=== PATIENT | female | born 1975 | race Caucasian/White ===

== ENCOUNTER 2020-11-07 18:24 | Inpatient (IN) | payer MEDICAID ==
[~2020-11-07] VITALS: Ht 172.7 cm; Wt 81.2 kg
[2020-11-08 10:36] VITALS: BP 121/59
[2020-11-08] MEDS ORDERED: loperamide 2mg capsule PO PRN (10:55)
[2020-11-08] MEDS ORDERED: LORazepam 1 MG tablet PO PRN (10:55)
[2020-11-08] MEDS ORDERED: mag hydrox/Alum hydrox/simeth 30ml oral suspension PO PRN (10:55)
[2020-11-08] MEDS ORDERED: acetaminophen 325mg tablet PO PRN ×2 (10:55)
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
[2020-11-08] MEDS ORDERED: OLAN10TA3 PO (12:49)
[2020-11-08] MEDS ORDERED: NAPR-56 PO (12:49)
[2020-11-08] MEDS ORDERED: GABA-530 PO (12:49)
[2020-11-08] MEDS: magnesium hydroxide 30ml (MOM) UD suspension PO PRN (17:39)
[2020-11-08 19:11] VITALS: BP 125/62
[2020-11-08] MEDS ORDERED: olanzapine 10mg tablet PO ONE (19:47)
[2020-11-08] MEDS: gabapentin 100mg capsule PO SCH (20:48)
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
[2020-11-09 07:28] VITALS: BP 112/67
[2020-11-09] MEDS: nicotine 21mg patch - 24 hr TD SCH (08:00)
[2020-11-09 08:09] LABS: BASOPHILS # (AUTO) 0.1 X10'3 (0-0.2); BASOPHILS % (AUTO) 1.1 % (0-1); EOSINOPHILS # (AUTO) 0.4 X10'3 (0-0.9); EOSINOPHILS % (AUTO) 4.9 % (0-6); HEMATOCRIT 41.9 % (35.0-45.0); HEMOGLOBIN 14.2 g/dl (12.0-16.0); LYMPHOCYTES # (AUTO) 2.5 X10'3 (1.1-4.8); LYMPHOCYTES % (AUTO) 31.3 % (21-51); MEAN CORPUSCULAR HEMOGLOBIN 31.6 PG (27.0-31.0); MEAN CORPUSCULAR HGB CONC 33.9 g/dL (33.0-36.5); MEAN CORPUSCULAR VOLUME 93.4 FL (78-98); MEAN PLATELET VOLUME 7.1 FL (7.4-10.4); MONOCYTES # (AUTO) 0.7 X10'3 (0-0.9); MONOCYTES % (AUTO) 9.4 % (2-12); NEUTROPHILS # (AUTO) 4.2 X10'3 (1.8-7.7); NEUTROPHILS % (AUTO) 53.3 % (42-75); PLATELET COUNT 302 X10'3 (140-440); RED BLOOD COUNT 4.49 X10'6 (4.20-5.60); RED CELL DISTRIBUTION WIDTH 13.3 % (11.5-14.5); WHITE BLOOD COUNT 7.9 X10'3 (4.5-11.0)
[2020-11-09] MEDS: olanzapine 10mg tablet PO SCH ×2 (08:10→21:53)
[2020-11-09 08:59] LABS: ALANINE AMINOTRANSFERASE 21 U/L (12-78); ALBUMIN 3.3 G/DL (3.4-5.0); ALBUMIN/GLOBULIN RATIO 0.9 (1.1-1.5); ALKALINE PHOSPHATASE 72 IU/L (46-116); ANION GAP 8 (8-16); ASPARTATE AMINO TRANSFERASE 15 U/L (10-37); BILIRUBIN,TOTAL 0.4 MG/DL (0.1-1.0); BLOOD UREA NITROGEN 12 MG/DL (7-18); BUN/CREATININE RATIO 13.8 (6.6-38.0); CALCIUM 8.4 MG/DL (8.5-10.1); CHLORIDE 106 MMOL/L (99-107); CHOL/HDL RATIO 2.8 (0.00-4.99); CHOLESTEROL 113 MG/DL (0-200); CREATININE 0.87 MG/DL (0.40-0.90); GLUCOSE 97 MG/DL (70-104); HDL CHOLESTEROL 41 MG/DL (35-60); LDL CHOLESTEROL 57 MG/DL (50-100); POTASSIUM 4.2 MMOL/L (3.5-5.1); SODIUM 141 MMOL/L (135-145); TOTAL CARBON DIOXIDE 27.1 MMOL/L (24-32); TOTAL PROTEIN 7.1 G/DL (6.4-8.2); TRIGLYCERIDES 79 MG/DL (20-135); eGFR 70 ML/MIN
[2020-11-09] MEDS: magnesium hydroxide 30ml (MOM) UD suspension PO PRN (11:29)
[2020-11-09] MEDS ORDERED: olanzapine 10mg tablet PO ONE (13:20)
[2020-11-09 14:31] LABS: HEMOGLOBIN A1C 5.6 % (4.5-6.2)
[2020-11-09] MEDS ORDERED: haloperidol 1mg tablet PO PRN (15:20)
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
[2020-11-09 18:05] LABS: BASOPHILS # (AUTO) 0.1 X10'3 (0-0.2); BASOPHILS % (AUTO) 1.2 % (0-1); EOSINOPHILS # (AUTO) 0.4 X10'3 (0-0.9); EOSINOPHILS % (AUTO) 3.9 % (0-6); HEMATOCRIT 41.3 % (35.0-45.0); HEMOGLOBIN 14.2 g/dl (12.0-16.0); LYMPHOCYTES # (AUTO) 2.1 X10'3 (1.1-4.8); MEAN CORPUSCULAR HEMOGLOBIN 32.1 PG (27.0-31.0); MEAN CORPUSCULAR HGB CONC 34.3 g/dL (33.0-36.5); MEAN CORPUSCULAR VOLUME 93.4 FL (78-98); MEAN PLATELET VOLUME 7.8 FL (7.4-10.4); MONOCYTES # (AUTO) 0.8 X10'3 (0-0.9); MONOCYTES % (AUTO) 9.3 % (2-12); NEUTROPHILS # (AUTO) 5.6 X10'3 (1.8-7.7); NEUTROPHILS % (AUTO) 62.6 % (42-75); PLATELET COUNT 302 X10'3 (140-440); RED BLOOD COUNT 4.42 X10'6 (4.20-5.60); RED CELL DISTRIBUTION WIDTH 13.5 % (11.5-14.5)
[2020-11-09 18:19] LABS: C-REACTIVE PROTEIN 1.13 MG/DL (0.0-0.5); CREATINE KINASE 58 U/L (26-192)
[2020-11-09 19:18] VITALS: BP 99/56
[2020-11-09] MEDS ORDERED: Permethrin Cream 60gm TP ONE (20:25)
[2020-11-09] MEDS ORDERED: Permethrin 1% 59ml topical rinse TP ONE (20:25)
[2020-11-09] MEDS: divalproex sod 250mg ER (24-hour) tablet PO SCH (21:52)
[2020-11-09] MEDS: clindamycin 150mg capsule PO SCH (21:52)
[2020-11-09] MEDS: gabapentin 100mg capsule PO SCH (21:53)
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
[2020-11-10] MEDS: clindamycin 150mg capsule PO SCH ×4 (02:55→20:23)
[2020-11-10 07:28] VITALS: BP 123/69
[2020-11-10] MEDS: nicotine 21mg patch - 24 hr TD SCH (08:00)
[2020-11-10] MEDS: olanzapine 10mg tablet PO SCH ×2 (08:54→20:23)
[2020-11-10] MEDS: naproxen 500mg tablet PO PRN (08:55)
[2020-11-10] MEDS ORDERED: Ivermectin 3mg tablet PO ONE (10:30)
[2020-11-10 10:45] LABS: CHOL/HDL RATIO 2.8 (0.00-4.99); CHOLESTEROL 105 MG/DL (0-200); HDL CHOLESTEROL 38 MG/DL (35-60); LDL CHOLESTEROL 56 MG/DL (50-100); TRIGLYCERIDES 104 MG/DL (20-135)
[2020-11-10 12:34] LABS: CLARITY,URINE CLOUDY (Clear); COLOR,URINE STRAW (Yellow); GLUCOSE, URINE NEGATIVE (Neg); KETONES,URINE NEGATIVE (Neg); LEUKOCYTE ESTERASE ,URINE NEGATIVE (Neg); NITRITES, URINE NEGATIVE (Neg); OCCULT BLOOD,URINE TRACE-INTACT (Neg); PROTEIN,URINE NEGATIVE (Neg); URINE HCG NEGATIVE (NEG); UROBILINOGEN,URINE 0.2 E.U/dL (0.2-1.0)
[2020-11-10 12:41] LABS: URINE AMPHETAMINE SCREEN NEGATIVE (Neg); URINE BARBITUATE SCREEN NEGATIVE (Neg); URINE BENZODIAZEPINES SCREEN NEGATIVE (Neg); URINE CANNABINOID SCREEN POSITIVE (Neg); URINE COCAINE SCREEN NEGATIVE (Neg); URINE METHADONE SCREEN NEGATIVE (Neg); URINE OPIATE SCREEN NEGATIVE (Neg); URINE PHENCYCLIDINE SCREEN NEGATIVE (Neg)
[2020-11-10 12:56] LABS: UA COLLECTION TYPE VOIDED
[2020-11-10 12:58] LABS: BACTERIA,URINE 1+ /HPF (Neg); RBC,URINE 0-2 /HPF (0-2); SQUAMOUS EPITHELIAL CELL,UR MANY /LPF (FEW); WBC,URINE 0-4 /HPF (0-4)
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
[2020-11-10] MEDS: magnesium hydroxide 30ml (MOM) UD suspension PO PRN (18:57)
[2020-11-10 19:24] VITALS: BP 112/67
[2020-11-10] MEDS: gabapentin 100mg capsule PO SCH (20:23)
[2020-11-10] MEDS: divalproex sod 250mg ER (24-hour) tablet PO SCH (20:23)
[2020-11-11] MEDS: clindamycin 150mg capsule PO SCH ×4 (01:49→20:23)
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
[2020-11-11 07:35] VITALS: BP 112/65
[2020-11-11] MEDS: nicotine 21mg patch - 24 hr TD SCH (08:00)
[2020-11-11] MEDS: olanzapine 10mg tablet PO SCH ×2 (08:48→20:24)
[2020-11-11] MEDS: magnesium hydroxide 30ml (MOM) UD suspension PO PRN (08:56)
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
[2020-11-11] MEDS: naproxen 500mg tablet PO PRN (20:23)
[2020-11-11] MEDS: divalproex sod 250mg ER (24-hour) tablet PO SCH (20:23)
[2020-11-11] MEDS: gabapentin 100mg capsule PO SCH (20:24)
[2020-11-11 20:41] VITALS: BP 146/62
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
[2020-11-12] MEDS: clindamycin 150mg capsule PO SCH ×4 (02:36→20:33)
[2020-11-12 07:32] VITALS: BP 132/92
[2020-11-12] MEDS: nicotine 21mg patch - 24 hr TD SCH (08:00)
[2020-11-12] MEDS: olanzapine 10mg tablet PO SCH ×2 (08:13→20:33)
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
[2020-11-12 19:15] VITALS: BP 121/79
[2020-11-12] MEDS: divalproex sod 250mg ER (24-hour) tablet PO SCH (20:33)
[2020-11-12] MEDS: naproxen 500mg tablet PO PRN (20:33)
[2020-11-12] MEDS: gabapentin 100mg capsule PO SCH (20:33)
[2020-11-12] MEDS: traZODone 50mg tablet PO PRN (21:15)
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
[2020-11-13] MEDS: clindamycin 150mg capsule PO SCH ×4 (02:00→20:15)
[2020-11-13 07:29] VITALS: BP 105/58
[2020-11-13] MEDS: nicotine 21mg patch - 24 hr TD SCH (08:00)
[2020-11-13] MEDS: olanzapine 10mg tablet PO SCH ×2 (08:15→20:15)
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
[2020-11-13] MEDS: gabapentin 100mg capsule PO SCH (20:15)
[2020-11-13] MEDS: traZODone 50mg tablet PO PRN (20:15)
[2020-11-13] MEDS: divalproex sod 250mg ER (24-hour) tablet PO SCH (20:15)
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
[2020-11-14] MEDS: clindamycin 150mg capsule PO SCH ×4 (02:59→20:18)
[2020-11-14 07:33] VITALS: BP 107/57
[2020-11-14] MEDS: nicotine 21mg patch - 24 hr TD SCH (08:00)
[2020-11-14] MEDS: OLANZAPINE 5 MG TABLET PO SCH (08:41)
[2020-11-14] MEDS: naproxen 500mg tablet PO PRN ×2 (08:42→20:18)
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
[2020-11-14 19:16] VITALS: BP 124/89
[2020-11-14] MEDS: divalproex sod 250mg ER (24-hour) tablet PO SCH (20:18)
[2020-11-14] MEDS: olanzapine 10mg tablet PO SCH (20:18)
[2020-11-14] MEDS: traZODone 50mg tablet PO PRN (20:18)
[2020-11-14] MEDS: gabapentin 100mg capsule PO SCH (20:18)
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
[2020-11-15] MEDS: clindamycin 150mg capsule PO SCH ×4 (02:00→20:04)
[2020-11-15] MEDS: nicotine 21mg patch - 24 hr TD SCH (08:00)
[2020-11-15 08:24] VITALS: BP 107/66
[2020-11-15] MEDS: naproxen 500mg tablet PO PRN ×2 (08:27→20:04)
[2020-11-15] MEDS: OLANZAPINE 5 MG TABLET PO SCH (08:27)
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
[2020-11-15 19:00] VITALS: BP 106/81
[2020-11-15] MEDS: olanzapine 10mg tablet PO SCH (20:03)
[2020-11-15] MEDS: divalproex sod 250mg ER (24-hour) tablet PO SCH (20:04)
[2020-11-15] MEDS: gabapentin 100mg capsule PO SCH (20:04)
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
[2020-11-16] MEDS: clindamycin 150mg capsule PO SCH ×5 (02:00→20:26)
[2020-11-16 07:00] VITALS: BP 96/50
[2020-11-16] MEDS: OLANZAPINE 5 MG TABLET PO SCH (08:05)
[2020-11-16] MEDS: nicotine 21mg patch - 24 hr TD SCH (08:06)
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
[2020-11-16 19:00] VITALS: BP 126/45
[2020-11-16 19:25] VITALS: BP 113/66
[2020-11-16] MEDS: olanzapine 10mg tablet PO SCH (20:26)
[2020-11-16] MEDS: gabapentin 100mg capsule PO SCH (20:26)
[2020-11-16] MEDS: divalproex sod 250mg ER (24-hour) tablet PO SCH (20:26)
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
[2020-11-17 07:18] VITALS: BP 107/61
[2020-11-17] MEDS: clindamycin 150mg capsule PO SCH ×4 (07:55→20:09)
[2020-11-17] MEDS: naproxen 500mg tablet PO PRN (07:56)
[2020-11-17] MEDS: OLANZAPINE 5 MG TABLET PO SCH (07:56)
--- NOTE | 2020-11-17 11:11 | NUR ---
Eating well, good appetite, 100% PO Intake. No nutrition problem. Recommend: 1. continue regular diet 2. bowel care as needed 3. weekly weights Addendum: 11/17/20 at [address] Amended: Links added.
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
[2020-11-17 19:47] VITALS: BP 118/70
[2020-11-17] MEDS: gabapentin 100mg capsule PO SCH (20:09)
[2020-11-17] MEDS: divalproex sod 250mg ER (24-hour) tablet PO SCH (20:09)
[2020-11-17] MEDS: olanzapine 10mg tablet PO SCH (20:10)
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
[2020-11-18] MEDS: clindamycin 150mg capsule PO SCH (08:05)
[2020-11-18] MEDS: OLANZAPINE 5 MG TABLET PO SCH (08:05)
[2020-11-18 08:21] VITALS: BP 110/74
--- NOTE | 2020-11-18 11:48 | NUR ---
DCP-Discharge Presenting Issues: Per attending PA, pt is ready for d/c and needs assistance w/dcp activities. Interventions: SS had t/c with [facility] clinician, per t/c post-hospital follow-ups scheduled with pt's clinician & psychiatric care provider made. SS also had t/c with [facility] [employer] and scheduled transportation home for pt. regional owner operator truck driver will pick pt up @ 1:00PM. Micky-RN & attending PA notified of dcp. SS met with pt and reviewed & finalized dcp. Pt reports looking forward to d/c and agreed to see her clinician on Wednesday for a post-hospital follow-up. Plan: Pt to d/c this afternoon. Alexia Honeycutt LCSW Addendum: 11/18/20 at 1153 by Alexia Honeycutt Amended: Links added.
[2020-11-18] MEDS ORDERED: TRAZ-251 PO (12:49)
[2020-11-18] MEDS ORDERED: GABA-530 PO (12:49)
[2020-11-18] MEDS ORDERED: DIVA250T8 PO (12:49)
[2020-11-18] MEDS ORDERED: OLAN10TA19 PO (12:49)
[2020-11-18] MEDS ORDERED: OLAN5TAB26 PO (12:49)
--- NOTE | 2020-11-18 16:20 | NUR ---
DISCHARGE NOTE The patient was discharged today at 1620. She left with all belongings and instructions. She was anxious to be discharged and looking forward to going home. She is going to her father's home in [place]. Denied suicidal thoughts. She was escorted to the lobby by IGNACIO Carter and picked up by a cab.
== END 2020-11-18 16:28 | disposition home or self-care (01) | DRG 751 ==
LOC: ADULT MH 11-08 10:23
PROVIDERS: ADMIT Psychiatry & Neurology Psychiatry; ATTEND Psychiatry & Neurology Psychiatry
DX: F29 Unspecified psychosis not due to a substance or known physiological condition (principal); B86 Scabies; F20.9 Schizophrenia, unspecified; L03.114 Cellulitis of left upper limb; F17.210 Nicotine dependence, cigarettes, uncomplicated; L03.113 Cellulitis of right upper limb; F15.10 Other stimulant abuse, uncomplicated; F41.9 Anxiety disorder, unspecified; F12.20 Cannabis dependence, uncomplicated; G47.00 Insomnia, unspecified; K21.9 Gastro-esophageal reflux disease without esophagitis; R65.10 Systemic inflammatory response syndrome (SIRS) of non-infectious origin without acute organ dysfunction; Z82.5 Family history of asthma and other chronic lower respiratory diseases; Z90.710 Acquired absence of both cervix and uterus; Z98.1 Arthrodesis status; Z98.891 History of uterine scar from previous surgery; Z71.6 Tobacco abuse counseling; Z88.0 Allergy status to penicillin; Z79.899 Other long term (current) drug therapy
CPT/HCPCS: 36415; 80053; 80061; 80305; 81001; 81025; 82550; 83036; 84443; 85025; 86140; 87081